=== PATIENT | female | born 1960 | race Caucasian/White ===

== ENCOUNTER 2019-01-05 09:33 | Emergency (ER) | payer MEDICARE ==
[~2019-01-05] VITALS: Ht 167.6 cm; Wt 81.4 kg
[2019-01-05 09:38] VITALS: Ht 167.6 cm; Wt 81.4 kg
[2019-01-05] MEDS ORDERED: MORPHINE SULFAT30 M4 PO (09:39)
[2019-01-05] MEDS ORDERED: ULTRAM50 MG PO (09:40)
[2019-01-05] MEDS ORDERED: ZANAFLEX4 MG PO (09:40)
[2019-01-05 13:03] VITALS: BP 123/72
== END 2019-01-05 13:05 | disposition home or self-care (01) ==
LOC: D.ER 09:33
DX: G89.29 Other chronic pain (principal); M54.5 Low back pain; M79.632 Pain in left forearm; M79.631 Pain in right forearm; M54.6 Pain in thoracic spine